=== PATIENT | female | born 1975 | race Caucasian/White ===

== ENCOUNTER 2024-12-01 21:03 | Emergency (ER) | payer OTHER ==
[~2024-12-01] VITALS: Ht 157.5 cm; Wt 76.2 kg
[2024-12-01 22:14] LABS: BASOPHILS ABSOLUTE AUTO 0.06 K/mm3 (0.00-0.23); BASOPHILS PERCENT AUTO 1 % (0-2); EOSINOPHILS ABSOLUTE AUTO 0.21 K/mm3 (0.00-0.68); EOSINOPHILS PERCENT AUTO 4 % (0-6); Hematocrit 33.2 % (33.0-51.0); Hemoglobin 10.2 g/dL (11.5-16.0); IMMATURE GRAN ABSOLUTE AUTO 0.01 K/mm3 (0.00-0.10); IMMATURE GRAN PERCENT AUTO 0 % (0-1); LYMPHOCYTES ABSOLUTE AUTO 2.11 K/mm3 (0.84-5.20); LYMPHOCYTES PERCENT AUTO 35 % (21-46); MONOCYTES ABSOLUTE AUTO 0.48 K/mm3 (0.16-1.47); MONOCYTES PERCENT AUTO 8 % (4-13); Mean Corpuscular HGB 23.2 pg (26.0-34.0); Mean Corpuscular HGB Conc 30.7 g/dL (31.5-36.5); Mean Corpuscular Volume 76 fL (80-100); Mean Platelet Volume 9.3 fL (9.1-12.4); NEUTROPHILS ABSOLUTE AUTO 3.12 K/mm3 (1.96-9.15); NEUTROPHILS PERCENT AUTO 52 % (41-73); Platelet Count 204 K/mm3 (150-400); RDW Coefficient Variation 23.5 % (11.7-14.2); RDW Standard Deviation 63.7 fL (35.1-46.3); Red Blood Cell Count 4.39 M/mm3 (3.80-5.20); White Blood Cell Count 5.99 K/mm3 (4.00-11.30)
[2024-12-01 23:00] LABS: Albumin, Blood 3.7 g/dL (3.4-5.0); Albumin/Globulin Ratio 1.1 (0.8-1.8); Bilirubin, Total 0.3 mg/dL (0.1-1.0); Bun/Creatinine Ratio 14.6 (12.0-20.0); Calcium, Blood 8.8 mg/dL (8.5-10.1); Creatinine, Blood 0.89 mg/dL (0.40-1.00); Globulin, Blood 3.4 g/dL (2.2-4.0); Potassium, Blood 3.6 mmol/L (3.5-5.5); Total Protein, Blood 7.1 g/dL (6.4-8.2)
[2024-12-02] MEDS ORDERED: NS 1,000 ML IV SCH (01:00)
== END 2024-12-02 03:33 | disposition home or self-care (01) ==
LOC: ER 21:03
PROVIDERS: Physician Assistant
DX: R55 Syncope and collapse (principal); Z88.5 Allergy status to narcotic agent
CPT/HCPCS: 71046; 80053; 84484; 85025; 93005; 93010; 96360; 99284-25; J7030

== ENCOUNTER → 2024-12-05 | Outpatient (CLI) | payer OTHER ==
[2024-12-05 14:17] LABS: Bacterial Vaginosis PCR Negative (NEGATIVE); Candida Group, PCR NOT DETECTED (NOT DETECT); Candida glabrata-krusei, PCR NOT DETECTED (NOT DETECT)
[2024-12-05 14:50] LABS: Chlamydia Trachomatis Vaginal NOT DETECTED (NOT DETECT); Neisseria Gonorrhoea Vaginal NOT DETECTED (NOT DETECT)
== END ==
LOC: LAB SHORT 10:21 → LAB 10:21
PROVIDERS: Advanced Practice Midwife
DX: Z11.3 Encounter for screening for infections with a predominantly sexual mode of transmission (principal); N76.0 Acute vaginitis
CPT/HCPCS: 81515; 87491; 87591

== ENCOUNTER → 2025-04-27 | Outpatient (CLI) | payer OTHER | END | disposition home or self-care (01) | LOC: LAB SHORT 11:32 → LAB 11:32 | DX: Z01.419 Encounter for gynecological examination (general) (routine) without abnormal findings (principal) | CPT/HCPCS: 87624; G0123 ==

== ENCOUNTER → 2025-04-27 | Outpatient (CLI) | payer OTHER ==
[2025-04-27 13:54] LABS: Bacterial Vaginosis PCR Negative (NEGATIVE); Candida Group, PCR NOT DETECTED (NOT DETECT); Candida glabrata-krusei, PCR NOT DETECTED (NOT DETECT)
== END ==
LOC: LAB SHORT 10:30 → LAB 10:30
DX: N89.8 Other specified noninflammatory disorders of vagina (principal)
CPT/HCPCS: 81515

== ENCOUNTER → 2025-06-15 | Outpatient (CLI) | payer OTHER | LOC: LAB 15:08 → LAB SHORT 15:08 | DX: N93.9 Abnormal uterine and vaginal bleeding, unspecified (principal) | CPT/HCPCS: 88305 ==

== ENCOUNTER 2025-07-23 08:41 | Emergency (ER) | payer OTHER ==
[~2025-07-23] VITALS: Ht 157.5 cm; Wt 79.8 kg
[2025-07-23] MEDS ORDERED: Ketorolac Tromethamine 15mg Vial IV ONE (09:40)
[2025-07-23 09:46] LABS: BASOPHILS ABSOLUTE AUTO 0.05 K/mm3 (0.00-0.23); BASOPHILS PERCENT AUTO 1 % (0-2); EOSINOPHILS ABSOLUTE AUTO 0.16 K/mm3 (0.00-0.68); EOSINOPHILS PERCENT AUTO 3 % (0-6); Hematocrit 36.8 % (33.0-51.0); Hemoglobin 12.2 g/dL (11.5-16.0); IMMATURE GRAN ABSOLUTE AUTO 0.01 K/mm3 (0.00-0.10); IMMATURE GRAN PERCENT AUTO 0 % (0-1); LYMPHOCYTES ABSOLUTE AUTO 1.77 K/mm3 (0.84-5.20); LYMPHOCYTES PERCENT AUTO 27 % (21-46); MONOCYTES ABSOLUTE AUTO 0.60 K/mm3 (0.16-1.47); MONOCYTES PERCENT AUTO 9 % (4-13); Mean Corpuscular HGB Conc 33.2 g/dL (31.5-36.5); Mean Corpuscular Volume 90 fL (80-100); NEUTROPHILS ABSOLUTE AUTO 3.93 K/mm3 (1.96-9.15); NEUTROPHILS PERCENT AUTO 60 % (41-73); NRBC ABSOLUTE 0.00 K/mm3 (0.00-0.02); NRBC Auto 0.0 /100 WBC (0.0-0.2); Platelet Count 238 K/mm3 (150-400); RDW Coefficient Variation 12.1 % (11.7-14.2); RDW Standard Deviation 40.2 fL (35.1-46.3)
[2025-07-23 10:06] LABS: Alanine Aminotransfer (ALT/SGP 21.0 U/L (12-78); Albumin, Blood 3.6 g/dL (3.4-5.0); Albumin/Globulin Ratio 1.1 (0.8-1.8); Anion Gap 10.0 mmol/L (3-11); Aspartate Aminotrans (AST/SGOT 13.0 U/L (12-37); Bilirubin, Total 0.3 mg/dL (0.1-1.0); Blood Urea Nitrogen 10.0 mg/dL (8-24); CO2, Blood 25.0 mmol/L (21-32); Calcium, Blood 8.3 mg/dL (8.5-10.1); Chloride, Blood 108.0 mmol/L (98-108); Creatinine, Blood 0.66 mg/dL (0.40-1.00); Ferritin, Serum 11.0 ng/mL (8-252); Globulin, Blood 3.3 g/dL (2.2-4.0); Glucose, Blood 105.0 mg/dL (70-99); Potassium, Blood 3.8 mmol/L (3.5-5.5); Sodium, Blood 139.0 mmol/L (136-145); Thyroid Stimulating Hormone 0.524 uIU/mL (0.360-4.800); Total Iron Binding Capacity 370.0 ug/dL (250-450); Total Protein, Blood 6.9 g/dL (6.4-8.2)
[2025-07-23] MEDS ORDERED: Tranexamic Acid 100 ML IV ONE (13:15)
[2025-07-23] MEDS ORDERED: TRANEXAMIC ACI650 MG PO (13:23)
[2025-07-23] MEDS ORDERED: PROVERA PO (13:55)
== END 2025-07-23 14:35 | disposition home or self-care (01) ==
LOC: ER 08:41
DX: N92.0 Excessive and frequent menstruation with regular cycle (principal); D25.0 Submucous leiomyoma of uterus; Z79.890 Hormone replacement therapy
CPT/HCPCS: 74177; 80053; 82728; 82947; 83540; 83550; 83690; 84443; 84484; 85025; 86850; 86900; 86901; 93005; 93010; 96361; 96365-59; 96375; 99284-25; J1885; J7120; Q9967

== ENCOUNTER 2025-08-14 05:54 | Day surgery (SDC) | payer OTHER ==
[~2025-08-14] VITALS: Ht 157.5 cm; Wt 82.0 kg
[2025-08-14] VITALS (14 sets, daily range): BP systolic 96–135; BP diastolic 64–698
[~2025-08-14 05:54] MED LIST: PROVERA PO; TRANEXAMIC ACI650 MG PO
[2025-08-14] MEDS ORDERED: CeFAZolin Sodium 2,000 MG in NS 100 ML IV SCH (06:20)
--- NOTE | 2025-08-14 06:44 | NUR ---
Ambulatory in Day Surgery History, Chart, Medications and Allergies reviewed before start of procedure. Pre-Op teaching done. Pt verbalizes understanding. Patient States Post-Procedure ride home has been arranged.
[2025-08-14] MEDS ORDERED: Rocuronium Bromide 10 MG/ML 5ML Injection IV ONE ×2 (07:06→08:12)
[2025-08-14] MEDS ORDERED: Dexamethasone Sod Phos 10 MG/ML 1ML VIAL ONE (07:06)
[2025-08-14] MEDS ORDERED: Ondansetron HCl 2 MG / ML 2ML Vial ONE (07:06)
[2025-08-14] MEDS ORDERED: FentaNYL Citrate 50 MCG/ML 2 ML Injection ONE ×2 (07:08→09:32)
[2025-08-14] MEDS ORDERED: Bupivacaine 0.25% Epi 1:200000 30 ML Vial ONE (07:10)
[2025-08-14] MEDS ORDERED: HYDROmorphone HCl/Pf 1MG SYR IV PRN ×2 (07:15→11:10)
[2025-08-14] MEDS ORDERED: FentaNYL Citrate 50 MCG/ML 2 ML Injection IV PRN ×2 (07:15→07:20)
[2025-08-14] MEDS ORDERED: Prochlorperazine Edisylate 10 mg Vial IV PRN (07:15)
[2025-08-14] MEDS ORDERED: Metoclopramide HCl 5MG / ML 2ML Vial IV PRN ×2 (07:20→11:05)
[2025-08-14] MEDS ORDERED: Albuterol 2.5 MG/3 ML VIAL INH PRN (07:20)
[2025-08-14] MEDS ORDERED: Ondansetron HCl 2 MG / ML 2ML Vial IV PRN ×2 (07:20→11:05)
[2025-08-14] MEDS ORDERED: Midazolam HCl 1MG / ML 2ML Vial IV PRN (07:20)
[2025-08-14] MEDS ORDERED: Ketorolac Tromethamine 30mg Vial ONE (08:27)
[2025-08-14] MEDS ORDERED: Sugammadex Sodium 200 MG/2ML SDV (100 MG/ML) ONE (08:27)
[2025-08-14] MEDS ORDERED: Metoclopramide HCl 5MG / ML 2ML Vial ONE (10:52)
[2025-08-14] MEDS ORDERED: HYDROmorphone HCl/Pf 1MG SYR ONE (10:57)
[2025-08-14] MEDS ORDERED: Naloxone HCl 0.4MG / ML 1ML Vial IV PRN (11:05)
[2025-08-14] MEDS ORDERED: FLU VACC TS2025-26(6MOS UP)/PF 45 MCG/0.5 ML SYRINGE IM SCH (11:10)
[2025-08-14] MEDS ORDERED: Ketorolac Tromethamine 30mg Vial IV SCH (12:00)
--- NOTE | 2025-08-14 17:58 | NUR ---
SHIFT SUMMARY: PATIENT IS ALERT AND ORIENTED X4 & COOPERATIVE WITH HER CARE. EMELI ARRIVED TO UNIT POST OP ROBOTIC HYSTERECTOMY WITH FOUR LAP SITES ACROSS HER ABDOMEN CLOSED WITH WOUND GLUE. PATIENT HAS BEEN ABLE TO VOID & REPORTED PASSING GAS BUT HAS NOT HAD A BOWEL MOVEMENT SINCE ARRIVAL. EMELI WAS MEDICATED FOR PAIN,SEE EMAR FOR MORE INFORMATION. PAIN HAS BEEN REPORTED TO COME IN WAVES NOW AND AGAIN. CURRENTLY IS DENYING ANY PAIN & RESTING WITH EVEN & UNLABORED RESPIRATIONS. PATIENT AGREEABLE AND WOULD LIKE TO STAY ANOTHER NIGHT, DISCHARGE ORDERS HAVE ALREADY BEEN PLACED. MD CALLED AND WANTED TO UPDATE PATIENT THAT HER ELIQUIS THAT WAS SENT TO [facility] ALREADY IS TO BE A 2.5MG DOSE PO TWICE DAILY AND NOT THE ORIGINAL 5MG DOSE THAT WAS SENT. AVELINOCAMILA AWARE. PATIENT WAS GIVEN ZOFRAN DUE TO FEELING NAUSEAOUS AND HAS BEEN TOLERATING SMALL SNACKS, WAS NOT INTERESTED IN ANY LARGE MEALS. PATIENT CURRENLTY RESTING, CALL LIGHT WITHIN REACH, BED IN LOWEST LOCKED POSITION & STATING NOTHING ELSE IS NEEDED AT THIS TIME.
[2025-08-14] MEDS ORDERED: NS 250 ML IV ONE (18:55)
[2025-08-14] MEDS ORDERED: Heparin Sodium,Porcine 5,000 UNIT/0.5 ML SDV SC SCH (18:59)
--- NOTE | 2025-08-14 20:30 | NUR ---
ASSUMED CARE PT IS POD O S/P ROBOTIC HYSTER. PT IS A/OX4. MEDICATED FOR NAUSEA AND PAIN AT THIS TIME. ABD LAP SITES CDI, NO DRAINAGE NOTED. IS BHUPINDER SIPS OF WATER. HAS VOIDED PER PT AND DAY RN. DENIES CHEST PAIN, PRESSURE, OR SOB AT THIS TIME. IS ON RA WITH VSS. VISITOR ATTENTIVE AT BEDSIDE. HAS CALL LIGHT IN REACH. DENIES NEEDS
[2025-08-15 02:04] VITALS: BP 120/72
--- NOTE | 2025-08-15 04:40 | NUR ---
SHIFT SUMMARY POD 1 S/P ROBOTIC TOTAL ABD HYSTER. ABD LAP SITE/INCISIONS CDI, NO DRAINAGE OR INCREASED REDNESS NOTED. PAIN MANAGED PER EMAR. AMB IND IN ROOM AND HALLWAY. BHUPINDER SMALL AMOUNT OF PO, DENIES NAUSEA AT THIS TIME. IS BELCHING. DENIES CHEST PAIN, PRESSURE, OR SOB. IV PATENT AND SL. IS A/OX4 WITH VSS. PT CURRENTLY RESTING IN BED WITH CALL LIGHT IN REACH. PLAN FOR POSSIBLE D/C HOME TODAY. WILL GIVE REPORT TO ONCOMING RN.
[2025-08-15 04:45] LABS: BASOPHILS ABSOLUTE AUTO 0.01 K/mm3 (0.00-0.23); BASOPHILS PERCENT AUTO 0 % (0-2); EOSINOPHILS ABSOLUTE AUTO 0.01 K/mm3 (0.00-0.68); EOSINOPHILS PERCENT AUTO 0 % (0-6); Hematocrit 32.7 % (33.0-51.0); Hemoglobin 10.7 g/dL (11.5-16.0); IMMATURE GRAN ABSOLUTE AUTO 0.03 K/mm3 (0.00-0.10); IMMATURE GRAN PERCENT AUTO 0 % (0-1); LYMPHOCYTES ABSOLUTE AUTO 1.35 K/mm3 (0.84-5.20); LYMPHOCYTES PERCENT AUTO 13 % (21-46); MONOCYTES ABSOLUTE AUTO 0.88 K/mm3 (0.16-1.47); MONOCYTES PERCENT AUTO 9 % (4-13); Mean Corpuscular HGB Conc 32.7 g/dL (31.5-36.5); Mean Corpuscular Volume 90 fL (80-100); NEUTROPHILS ABSOLUTE AUTO 7.91 K/mm3 (1.96-9.15); NEUTROPHILS PERCENT AUTO 78 % (41-73); NRBC ABSOLUTE 0.00 K/mm3 (0.00-0.02); NRBC Auto 0.0 /100 WBC (0.0-0.2); Platelet Count 189 K/mm3 (150-400); RDW Coefficient Variation 13.8 % (11.7-14.2); RDW Standard Deviation 45.1 fL (35.1-46.3)
[2025-08-15 05:19] VITALS: BP 103/58
[2025-08-15 07:43] VITALS: BP 108/60
[2025-08-15] MEDS ORDERED: ACET500 PO (07:44)
[2025-08-15] MEDS ORDERED: ONDA4ODT MM (07:45)
[2025-08-15] MEDS ORDERED: OXYC5 PO (07:45)
[2025-08-15] MEDS ORDERED: IBUP400 PO (07:45)
[2025-08-15] MEDS ORDERED: ELIQUIS2.5 MG PO (07:47)
[2025-08-15 10:34] VITALS: BP 109/56
--- NOTE | 2025-08-15 10:53 | NUR ---
DISCHARGED REVIEWED DC INSTRUCTIONS W/PT; VERBALIZED UNDERSTANDING. VSS. PAIN CONTROLLED PER EMAR. TOLERATED DIET. AMBULATING INDEPENDENTLY. DESIRED TO DC HOME. PT SIGNED DC PAPERWORK AND LEFT UNIT IN WC, ACCOMPANIED BY S.O.
== END 2025-08-15 10:51 | disposition home or self-care (01) ==
LOC: ORSCMMR 05:54 → ORD 07:30 → SURS 11:32 → ORSCMMR 08-15 10:51
PROVIDERS: Obstetrics & Gynecology
PROC: 0UT9FZZ Resection of Uterus, Via Natural or Artificial Opening With Percutaneous Endoscopic Assistance (ICD-10-PCS; principal; 2025-08-14 07:30)
PROC: 0UT7FZZ Resection of Bilateral Fallopian Tubes, Via Natural or Artificial Opening With Percutaneous Endoscopic Assistance (ICD-10-PCS; principal; 2025-08-14 07:30)
DX: N93.9 Abnormal uterine and vaginal bleeding, unspecified (principal); D25.2 Subserosal leiomyoma of uterus; N73.6 Female pelvic peritoneal adhesions (postinfective); E78.5 Hyperlipidemia, unspecified; E03.9 Hypothyroidism, unspecified; E66.9 Obesity, unspecified; Z68.33 Body mass index [BMI] 33.0-33.9, adult; Z79.899 Other long term (current) drug therapy
CPT/HCPCS: 36415; 85025; 86850; 86900; 86901; 88307; 93005; 93010; A9270; J0690; J1100; J1171; J1644; J1885; J2250; J2405; J2704; J2765; J3010; J7050; J7120

== ENCOUNTER → 2025-08-27 | Outpatient (CLI) | payer OTHER ==
[~2025-08-27] MED LIST changes: +ACET500 PO; +ELIQUIS2.5 MG PO; +IBUP400 PO; +ONDA4ODT MM; +OXYC5 PO
== END ==
LOC: LAB SHORT 16:25 → LAB 16:25
DX: R31.9 Hematuria, unspecified (principal)
CPT/HCPCS: 87086

== ENCOUNTER → 2025-08-28 | Outpatient (CLI) | payer OTHER ==
[2025-08-28 15:13] LABS: Bacterial Vaginosis PCR Negative (NEGATIVE); Candida Group, PCR NOT DETECTED (NOT DETECT); Candida glabrata-krusei, PCR NOT DETECTED (NOT DETECT)
== END ==
LOC: LAB SHORT 11:25 → LAB 11:25
PROVIDERS: Obstetrics & Gynecology
DX: N89.8 Other specified noninflammatory disorders of vagina (principal)
CPT/HCPCS: 81515

== ENCOUNTER → 2025-09-25 | Outpatient (CLI) | payer OTHER ==
[2025-09-25 13:51] LABS: Source, Urine Clean Catch
[2025-09-25 15:24] LABS: Bilirubin, Urine Neg (Neg); Color, Urine Yellow (P-Yellow); Glucose Qualitative, Urine Neg (Neg); Ketones, Urine Neg (Neg); Leukocyte Esterase, Urine Neg (Neg); Protein, Urine Neg (Neg); Specific Gravity, Urine 1.010 (1.003-1.022); Urobilinogen, Urine NORM (Normal)
[2025-09-25 16:14] LABS: Bacterial Vaginosis PCR Negative (NEGATIVE); Candida Group, PCR NOT DETECTED (NOT DETECT); Candida glabrata-krusei, PCR NOT DETECTED (NOT DETECT)
== END | disposition home or self-care (01) ==
LOC: LAB 11:30 → LAB SHORT 11:30
PROVIDERS: Obstetrics & Gynecology
DX: N89.8 Other specified noninflammatory disorders of vagina (principal)
CPT/HCPCS: 81003; 81515